=== PATIENT | female | born 1945 | race Caucasian/White ===

== ENCOUNTER 2016-06-04 17:28 | Inpatient (IN) | payer OTHER ==
[~2016-06-04] VITALS: Ht 167.6 cm; Wt 59.5 kg
[~2016-06-04 17:28] MED LIST: ADVAIR HFA120 INHALA IH; COUMADIN5 MG PO; GLIPIZIDE ER2.5 MG PO; HYDROCHLOROTH12.5 M3 PO; LEVO-T150 MCG PO; LEVO-T75 MCG PO; LEVOTHYROXINE150 MCG PO; LEVOTHYROXINE175 MCG PO; LISINOPRIL10 MG PO; LO-DOSE ASPIRIN81 M1 PO; MEDROL DOSEPAK4 MG PO; METFORMIN HCL500 MG PO; METOPROLOL TART50 MG PO; MUCINEX600 MG PO; PRAVACHOL80 MG PO; PREDNISONE10 MG PO; PROAIR HFA8.5 GM IH; PROMETHAZINE-D120 ML PO; TRIAMCINOLONE A15 GM TP; ZOCOR40 MG PO
[2016-06-04 20:09] LABS: CHLORIDE 100 mEq/L (99-109); POTASSIUM 3.2 mEq/L (3.7-5.4); SODIUM 134 mEq/L (136-147)
[2016-06-04 20:11] LABS: GLUCOSE 120 mg/dL (70-99)
[2016-06-04 20:12] LABS: ANION GAP 8 MEQ/L (2-14)
[2016-06-04 20:13] LABS: PTT 44.2 (25-32); TOTAL BILIRUBIN 0.3 mg/dL (0.0-1.0)
[2016-06-04 20:15] LABS: ALKALINE PHOSPHATASE 56 IU/L (3-129); GFR ESTIMATE (CALCULATED) > 59 mL/min/; HEMATOCRIT 17.4 % (36.0-46.0); MCH 31.1 PG (29.0-34.0); MCHC 32.8 G/DL (30.0-36.0); MCV 95.1 FL (83-99); MEAN PLAT.VOLUME 10.4 uM^3 (9.5-12.4); PLATELET COUNT 303 K/uL (156-360); RBC DIS.WIDTH-CV 12.5 % (11.8-14.6); RBC DIS.WIDTH-SD 38.9 % (39-53); RED BLOOD COUNT 1.83 M/uL (3.80-5.20); WHITE BLOOD COUNT 10.9 K/uL (4.1-10.2)
[2016-06-04 20:16] LABS: UREA NITROGEN (BUN) 21 mg/dL (9-23)
[2016-06-04 20:18] LABS: LIPASE 4 U/L (1.0-51.0)
[2016-06-04 20:31] LABS: INTER. NORMALIZED RATIO 3.3; PROTHROMBIN TIME 35.2 (9.2-11.2)
[2016-06-04] MEDS ORDERED: GLIPIZIDE ER2.5 MG PO (21:24)
[2016-06-04] MEDS ORDERED: WARFARIN SODIUM5 MG PO (21:24)
[2016-06-04] MEDS ORDERED: LEVO-T175 MCG PO (21:25)
[2016-06-04] MEDS ORDERED: HYDROCHLOROTH12.5 M3 PO (21:26)
[2016-06-04 22:01] VITALS: BP 100/50
[2016-06-04 22:24] VITALS: BP 90/47
[2016-06-04 22:42] VITALS: BP 113/50
[2016-06-04 23:30] VITALS: BP 100/60
[2016-06-04 23:45] LABS: TROP-I INTERPRETATION NEGATIVE; TROPONIN-I < 0.01 ng/mL (0.0-0.30)
[2016-06-05] VITALS (27 sets, daily range): BP systolic 85–128; BP diastolic 37–66
[2016-06-05 04:37] LABS: METH RESISTANT S AUREUS PCR NEGATIVE (NEGATIVE)
[2016-06-05 04:41] LABS: EOSINOPHIL (%) 1.1 % (0-5); EOSINOPHIL COUNT 0.1 K/uL (0-0.3); HEMATOCRIT 21.9 % (36.0-46.0); IMMATURE GRANULOCYTE (%) 0.1 % (0.0-0.7); IMMATURE GRANULOCYTE COUNT 0.1 K/uL; LYMPHOCYTE COUNT 2.1 K/uL (1.0-2.8); MCH 30.3 PG (29.0-34.0); MCHC 32.9 G/DL (30.0-36.0); MEAN PLAT.VOLUME 10.2 uM^3 (9.5-12.4); MONOCYTE (%) 7.5 % (3-12); MONOCYTE COUNT 0.6 K/uL (0-0.8); NEUTROPHIL (%) 65.4 % (45-76); NEUTROPHIL COUNT 5.3 K/uL (1.8-6.4); PLATELET COUNT 231 K/uL (156-360); RBC DIS.WIDTH-CV 13.9 % (11.8-14.6); RED BLOOD COUNT 2.38 M/uL (3.80-5.20)
[2016-06-05 04:42] LABS: PROBE CHECK PASS; SPECIMEN PROCESSING CONTROL PASS
[2016-06-05 04:43] LABS: CHLORIDE 109 mEq/L (99-109); POTASSIUM 3.3 mEq/L (3.7-5.4); SODIUM 137 mEq/L (136-147)
[2016-06-05 04:45] LABS: GLUCOSE 125 mg/dL (70-99)
[2016-06-05 04:47] LABS: ANION GAP 7 MEQ/L (2-14)
[2016-06-05 04:48] LABS: INTER. NORMALIZED RATIO 1.5; PROTHROMBIN TIME 15.1 (9.2-11.2)
[2016-06-05 04:49] LABS: GFR ESTIMATE (CALCULATED) > 59 mL/min/
[2016-06-05 04:50] LABS: UREA NITROGEN (BUN) 17 mg/dL (9-23)
[2016-06-05 06:09] LABS: ALKALINE PHOSPHATASE 58 IU/L (3-129)
[2016-06-05 06:16] LABS: TROP-I INTERPRETATION POSITIVE
[2016-06-05 06:23] LABS: TOTAL BILIRUBIN 1.1 mg/dL (0.0-1.0)
[2016-06-05 06:24] LABS: TROPONIN-I 1.99 ng/mL (0.0-0.30)
[2016-06-05 12:40] LABS: POINT-OF-CARE METER ID UU13113803
[2016-06-05 13:37] LABS: HEMATOCRIT 30.1 % (36.0-46.0); MCH 30.8 PG (29.0-34.0); MCHC 33.6 G/DL (30.0-36.0); MCV 91.8 FL (83-99); MEAN PLAT.VOLUME 10.3 uM^3 (9.5-12.4); PLATELET COUNT 217 K/uL (156-360); RBC DIS.WIDTH-CV 14.7 % (11.8-14.6); RBC DIS.WIDTH-SD 47.4 % (39-53); RED BLOOD COUNT 3.28 M/uL (3.80-5.20); WHITE BLOOD COUNT 7.9 K/uL (4.1-10.2)
[2016-06-05 13:46] LABS: TROP-I INTERPRETATION POSITIVE
[2016-06-05 13:51] LABS: TROPONIN-I 1.84 ng/mL (0.0-0.30)
[2016-06-05 18:17] LABS: POINT-OF-CARE METER ID UU13113803
[2016-06-05 19:01] LABS: HEMATOCRIT 27.2 % (36.0-46.0); MCH 31.4 PG (29.0-34.0); MCHC 34.6 G/DL (30.0-36.0); MEAN PLAT.VOLUME 10.8 uM^3 (9.5-12.4); PLATELET COUNT 241 K/uL (156-360); RBC DIS.WIDTH-CV 14.8 % (11.8-14.6); RBC DIS.WIDTH-SD 47.6 % (39-53); RED BLOOD COUNT 2.99 M/uL (3.80-5.20); WHITE BLOOD COUNT 8.5 K/uL (4.1-10.2)
[2016-06-05 19:30] LABS: TROP-I INTERPRETATION POSITIVE
[2016-06-05 20:12] LABS: TROPONIN-I 1.93 ng/mL (0.0-0.30)
[2016-06-06] VITALS (20 sets, daily range): BP systolic 95–161; BP diastolic 42–63
[2016-06-06 00:27] LABS: POINT-OF-CARE METER ID UU13113803; POINT-OF-CARE USER ID PHATLC
[2016-06-06 02:59] LABS: HEMATOCRIT 31.2 % (36.0-46.0); MCH 30.1 PG (29.0-34.0); MCHC 33.3 G/DL (30.0-36.0); MCV 90.4 FL (83-99); MEAN PLAT.VOLUME 10.2 uM^3 (9.5-12.4); PLATELET COUNT 228 K/uL (156-360); RBC DIS.WIDTH-CV 14.9 % (11.8-14.6); RBC DIS.WIDTH-SD 46.1 % (39-53); RED BLOOD COUNT 3.45 M/uL (3.80-5.20); WHITE BLOOD COUNT 9.6 K/uL (4.1-10.2)
[2016-06-06 05:19] LABS: HEMATOCRIT 32.2 % (36.0-46.0); MCH 30.2 PG (29.0-34.0); MCHC 33.2 G/DL (30.0-36.0); MEAN PLAT.VOLUME 10.5 uM^3 (9.5-12.4); PLATELET COUNT 239 K/uL (156-360); RBC DIS.WIDTH-CV 15.1 % (11.8-14.6); RED BLOOD COUNT 3.54 M/uL (3.80-5.20); WHITE BLOOD COUNT 9.7 K/uL (4.1-10.2)
[2016-06-06 05:28] LABS: PROTHROMBIN TIME 10.4 (9.2-11.2)
[2016-06-06 05:41] LABS: TROP-I INTERPRETATION POSITIVE
[2016-06-06 05:44] LABS: ANION GAP 10 MEQ/L (2-14); CHLORIDE 107 MEQ/L (99-109); GFR ESTIMATE (CALCULATED) > 59 mL/min/; GLUCOSE 108 mg/dL (70-99); MAGNESIUM 1.9 mg/dl (1.3-2.7); POTASSIUM 3.6 MEQ/L (3.7-5.4); SAMPLE HEMOLYSIS CHECK 0; SAMPLE ICTERIC CHECK 0; SAMPLE LIPEMIA CHECK 0; SODIUM 139 MEQ/L (136-147); UREA NITROGEN (BUN) 15 mg/dL (9-23)
[2016-06-06 12:33] LABS: HEMATOCRIT 30.6 % (36.0-46.0); MCH 30.4 PG (29.0-34.0); MCHC 33.3 G/DL (30.0-36.0); MCV 91.3 FL (83-99); MEAN PLAT.VOLUME 10.3 uM^3 (9.5-12.4); PLATELET COUNT 230 K/uL (156-360); RBC DIS.WIDTH-CV 15.2 % (11.8-14.6); RBC DIS.WIDTH-SD 48.9 % (39-53); RED BLOOD COUNT 3.35 M/uL (3.80-5.20)
[2016-06-06 18:14] LABS: POINT-OF-CARE METER ID UU14162636
[2016-06-06 18:22] LABS: HEMATOCRIT 32.1 % (36.0-46.0); MCH 30.9 PG (29.0-34.0); MCHC 33.6 G/DL (30.0-36.0); MEAN PLAT.VOLUME 10.5 uM^3 (9.5-12.4); PLATELET COUNT 238 K/uL (156-360); RBC DIS.WIDTH-CV 15.3 % (11.8-14.6); RBC DIS.WIDTH-SD 49.5 % (39-53); RED BLOOD COUNT 3.49 M/uL (3.80-5.20); WHITE BLOOD COUNT 10.9 K/uL (4.1-10.2)
[2016-06-07] VITALS (24 sets, daily range): BP systolic 77–136; BP diastolic 34–67
[2016-06-07 00:09] LABS: POINT-OF-CARE METER ID UU14162636
[2016-06-07 00:33] LABS: HEMATOCRIT 31.8 % (36.0-46.0); MCH 30.7 PG (29.0-34.0); MCHC 33.6 G/DL (30.0-36.0); MCV 91.1 FL (83-99); MEAN PLAT.VOLUME 10.1 uM^3 (9.5-12.4); PLATELET COUNT 262 K/uL (156-360); RBC DIS.WIDTH-CV 15.3 % (11.8-14.6); RBC DIS.WIDTH-SD 47.7 % (39-53); RED BLOOD COUNT 3.49 M/uL (3.80-5.20); WHITE BLOOD COUNT 11.2 K/uL (4.1-10.2)
[2016-06-07 06:05] LABS: HEMATOCRIT 30.7 % (36.0-46.0); MCH 30.1 PG (29.0-34.0); MCHC 32.9 G/DL (30.0-36.0); MCV 91.6 FL (83-99); MEAN PLAT.VOLUME 10.4 uM^3 (9.5-12.4); PLATELET COUNT 266 K/uL (156-360); RBC DIS.WIDTH-CV 15.2 % (11.8-14.6); RBC DIS.WIDTH-SD 48.9 % (39-53); RED BLOOD COUNT 3.35 M/uL (3.80-5.20); WHITE BLOOD COUNT 11.2 K/uL (4.1-10.2)
[2016-06-07 06:07] LABS: POINT-OF-CARE METER ID UU13113803
[2016-06-07 06:16] LABS: INTER. NORMALIZED RATIO 1.1; PROTHROMBIN TIME 10.7 (9.2-11.2)
[2016-06-07 06:41] LABS: ANION GAP 9 MEQ/L (2-14); CHLORIDE 101 MEQ/L (99-109); GFR ESTIMATE (CALCULATED) > 59 mL/min/; GLUCOSE 99 mg/dL (70-99); MAGNESIUM 1.9 mg/dl (1.3-2.7); POTASSIUM 3.6 MEQ/L (3.7-5.4); SAMPLE HEMOLYSIS CHECK 0; SAMPLE ICTERIC CHECK 0; SAMPLE LIPEMIA CHECK 0; SODIUM 134 MEQ/L (136-147); UREA NITROGEN (BUN) 12 mg/dL (9-23)
[2016-06-07 12:24] LABS: HEMATOCRIT 32.4 % (36.0-46.0); MCH 30.9 PG (29.0-34.0); MCHC 33.3 G/DL (30.0-36.0); MCV 92.8 FL (83-99); MEAN PLAT.VOLUME 10.7 uM^3 (9.5-12.4); PLATELET COUNT 262 K/uL (156-360); RBC DIS.WIDTH-CV 15.3 % (11.8-14.6); RBC DIS.WIDTH-SD 49.9 % (39-53); RED BLOOD COUNT 3.49 M/uL (3.80-5.20); WHITE BLOOD COUNT 9.9 K/uL (4.1-10.2)
[2016-06-07 17:53] LABS: HEMATOCRIT 32.3 % (36.0-46.0); MCH 30.7 PG (29.0-34.0); MCHC 33.4 G/DL (30.0-36.0); MCV 91.8 FL (83-99); PLATELET COUNT 266 K/uL (156-360); RBC DIS.WIDTH-CV 15.2 % (11.8-14.6); RBC DIS.WIDTH-SD 48.5 % (39-53); RED BLOOD COUNT 3.52 M/uL (3.80-5.20); WHITE BLOOD COUNT 10.3 K/uL (4.1-10.2)
[2016-06-07 23:51] LABS: MCV 90.9 FL (83-99)
[2016-06-08] VITALS (21 sets, daily range): BP systolic 92–140; BP diastolic 47–77
[2016-06-08 05:49] LABS: HEMATOCRIT 31.3 % (36.0-46.0); MCH 30.2 PG (29.0-34.0); MCHC 32.9 G/DL (30.0-36.0); MCV 91.8 FL (83-99); MEAN PLAT.VOLUME 10.5 uM^3 (9.5-12.4); PLATELET COUNT 283 K/uL (156-360); RBC DIS.WIDTH-CV 14.9 % (11.8-14.6); RBC DIS.WIDTH-SD 48.3 % (39-53); RED BLOOD COUNT 3.41 M/uL (3.80-5.20); WHITE BLOOD COUNT 11.3 K/uL (4.1-10.2)
[2016-06-08 06:10] LABS: INTER. NORMALIZED RATIO 1.2; PROTHROMBIN TIME 11.8 (9.2-11.2)
[2016-06-08 06:59] LABS: ANION GAP 6 MEQ/L (2-14); CHLORIDE 102 MEQ/L (99-109); GFR ESTIMATE (CALCULATED) > 59 mL/min/; GLUCOSE 102 mg/dL (70-99); POTASSIUM 3.7 MEQ/L (3.7-5.4); SAMPLE HEMOLYSIS CHECK 0; SAMPLE ICTERIC CHECK 0; SAMPLE LIPEMIA CHECK 0; SODIUM 135 MEQ/L (136-147); UREA NITROGEN (BUN) 7 mg/dL (9-23)
[2016-06-08 07:01] LABS: MAGNESIUM 1.6 mg/dl (1.3-2.7)
[2016-06-08 09:09] LABS: POINT-OF-CARE METER ID UU14174217
[2016-06-08 10:02] LABS: POINT-OF-CARE METER ID UU14162636
[2016-06-08 12:41] LABS: HEMATOCRIT 32.1 % (36.0-46.0); MCHC 32.7 G/DL (30.0-36.0); MCV 91.7 FL (83-99); MEAN PLAT.VOLUME 10.3 uM^3 (9.5-12.4); PLATELET COUNT 285 K/uL (156-360); RBC DIS.WIDTH-CV 15.2 % (11.8-14.6); RBC DIS.WIDTH-SD 48.4 % (39-53)
[2016-06-08 12:43] LABS: POINT-OF-CARE METER ID UU14174217
[2016-06-08 16:52] LABS: HEMATOCRIT 32.3 % (36.0-46.0); MCH 30.1 PG (29.0-34.0); MCHC 33.1 G/DL (30.0-36.0); MEAN PLAT.VOLUME 10.1 uM^3 (9.5-12.4); PLATELET COUNT 281 K/uL (156-360); RBC DIS.WIDTH-CV 14.8 % (11.8-14.6); RBC DIS.WIDTH-SD 47.9 % (39-53); RED BLOOD COUNT 3.55 M/uL (3.80-5.20); WHITE BLOOD COUNT 10.3 K/uL (4.1-10.2)
[2016-06-08 17:13] LABS: ANION GAP 7 MEQ/L (2-14); CHLORIDE 101 MEQ/L (99-109); GFR ESTIMATE (CALCULATED) > 59 mL/min/; GLUCOSE 102 mg/dL (70-99); MAGNESIUM 1.6 mg/dl (1.3-2.7); POTASSIUM 3.6 MEQ/L (3.7-5.4); SAMPLE HEMOLYSIS CHECK 0; SAMPLE ICTERIC CHECK 0; SAMPLE LIPEMIA CHECK 0; SODIUM 136 MEQ/L (136-147); UREA NITROGEN (BUN) 6 mg/dL (9-23)
[2016-06-08 17:52] LABS: POINT-OF-CARE METER ID UU13113731
[2016-06-08 22:07] LABS: POINT-OF-CARE METER ID UU13113731
[2016-06-09] VITALS (18 sets, daily range): BP systolic 67–126; BP diastolic 30–64
[2016-06-09 00:29] LABS: HEMATOCRIT 31.7 % (36.0-46.0); MCH 30.5 PG (29.0-34.0); MCHC 33.4 G/DL (30.0-36.0); MCV 91.4 FL (83-99); MEAN PLAT.VOLUME 9.9 uM^3 (9.5-12.4); PLATELET COUNT 300 K/uL (156-360); RBC DIS.WIDTH-SD 47.1 % (39-53); RED BLOOD COUNT 3.47 M/uL (3.80-5.20); WHITE BLOOD COUNT 11.3 K/uL (4.1-10.2)
[2016-06-09 06:06] LABS: ANION GAP 8 MEQ/L (2-14); CHLORIDE 100 MEQ/L (99-109); GFR ESTIMATE (CALCULATED) > 59 mL/min/; GLUCOSE 109 mg/dL (70-99); MAGNESIUM 1.6 mg/dl (1.3-2.7); POTASSIUM 3.8 MEQ/L (3.7-5.4); SAMPLE HEMOLYSIS CHECK 0; SAMPLE ICTERIC CHECK 0; SAMPLE LIPEMIA CHECK 0; SODIUM 136 MEQ/L (136-147); UREA NITROGEN (BUN) 5 mg/dL (9-23)
[2016-06-09 11:57] LABS: POINT-OF-CARE METER ID UU13113803
[2016-06-09 21:50] LABS: POINT-OF-CARE METER ID UU13113803
[2016-06-10] VITALS (16 sets, daily range): BP systolic 53–133; BP diastolic 41–67
[2016-06-10 05:16] LABS: POTASSIUM 3.4 mEq/L (3.7-5.4); SODIUM 137 mEq/L (136-147)
[2016-06-10 05:17] LABS: CHLORIDE 98 mEq/L (99-109)
[2016-06-10 05:18] LABS: GLUCOSE 120 mg/dL (70-99); MAGNESIUM 1.5 mg/dL (1.3-2.7)
[2016-06-10 05:19] LABS: ANION GAP 9 MEQ/L (2-14)
[2016-06-10 05:22] LABS: GFR ESTIMATE (CALCULATED) > 59 mL/min/
[2016-06-10 05:23] LABS: UREA NITROGEN (BUN) 4 mg/dL (9-23)
[2016-06-10 08:30] LABS: POINT-OF-CARE METER ID UU13113748; POINT-OF-CARE USER ID NUTJLF39
[2016-06-10 12:20] LABS: POINT-OF-CARE METER ID UU13113748; POINT-OF-CARE USER ID NUTJLF39
[2016-06-10 13:21] LABS: TROP-I INTERPRETATION NEGATIVE; TROPONIN-I 0.05 ng/mL (0.0-0.30)
[2016-06-10 13:25] LABS: ANION GAP 5 MEQ/L (2-14); CHLORIDE 98 MEQ/L (99-109); GFR ESTIMATE (CALCULATED) > 59 mL/min/; GLUCOSE 206 mg/dL (70-99); MAGNESIUM 1.5 mg/dl (1.3-2.7); SAMPLE HEMOLYSIS CHECK 0; SAMPLE ICTERIC CHECK 0; SAMPLE LIPEMIA CHECK 0; SODIUM 132 MEQ/L (136-147); UREA NITROGEN (BUN) 4 mg/dL (9-23)
[2016-06-10 13:26] LABS: POTASSIUM 4.4 MEQ/L (3.7-5.4)
[2016-06-10 15:33] LABS: POINT-OF-CARE METER ID UU13113748; POINT-OF-CARE USER ID NUTJLF39
[2016-06-10 22:52] LABS: POINT-OF-CARE METER ID UU13113748
[2016-06-11] VITALS (11 sets, daily range): BP systolic 100–134; BP diastolic 45–61
[2016-06-11 06:26] LABS: POINT-OF-CARE METER ID UU13113748
[2016-06-11 06:28] LABS: EOSINOPHIL (%) 2.1 % (0-5); EOSINOPHIL COUNT 0.2 K/uL (0-0.3); HEMATOCRIT 35.2 % (36.0-46.0); IMMATURE GRANULOCYTE (%) 0.1 % (0.0-0.7); LYMPHOCYTE COUNT 1.5 K/uL (1.0-2.8); MCH 30.3 PG (29.0-34.0); MCHC 32.7 G/DL (30.0-36.0); MCV 92.9 FL (83-99); MEAN PLAT.VOLUME 10.5 uM^3 (9.5-12.4); MONOCYTE (%) 11.3 % (3-12); MONOCYTE COUNT 0.9 K/uL (0-0.8); NEUTROPHIL (%) 66.9 % (45-76); NEUTROPHIL COUNT 5.2 K/uL (1.8-6.4); PLATELET COUNT 343 K/uL (156-360); RBC DIS.WIDTH-CV 14.7 % (11.8-14.6); RBC DIS.WIDTH-SD 49.1 % (39-53); RED BLOOD COUNT 3.79 M/uL (3.80-5.20)
[2016-06-11 06:34] LABS: WHITE BLOOD COUNT 7.7 K/uL (4.1-10.2)
[2016-06-11 06:44] LABS: ANION GAP 7 MEQ/L (2-14); CHLORIDE 98 MEQ/L (99-109); GFR ESTIMATE (CALCULATED) > 59 mL/min/; GLUCOSE 131 mg/dL (70-99); MAGNESIUM 1.7 mg/dl (1.3-2.7); POTASSIUM 4.3 MEQ/L (3.7-5.4); SAMPLE HEMOLYSIS CHECK 0; SAMPLE ICTERIC CHECK 0; SAMPLE LIPEMIA CHECK 0; SODIUM 137 MEQ/L (136-147); UREA NITROGEN (BUN) 4 mg/dL (9-23)
[2016-06-11 07:18] LABS: DIGOXIN 0.5 ng/mL (0.8-2.0)
[2016-06-12] VITALS (7 sets, daily range): BP systolic 126–156; BP diastolic 58–76
[2016-06-12 06:13] LABS: EOSINOPHIL (%) 1.8 % (0-5); EOSINOPHIL COUNT 0.2 K/uL (0-0.3); IMMATURE GRANULOCYTE (%) 0.2 % (0.0-0.7); LYMPHOCYTE COUNT 1.7 K/uL (1.0-2.8); MCH 29.9 PG (29.0-34.0); MCHC 32.8 G/DL (30.0-36.0); MCV 91.4 FL (83-99); MONOCYTE (%) 8.3 % (3-12); MONOCYTE COUNT 0.8 K/uL (0-0.8); NEUTROPHIL (%) 71.4 % (45-76); NEUTROPHIL COUNT 6.7 K/uL (1.8-6.4); PLATELET COUNT 398 K/uL (156-360); RBC DIS.WIDTH-CV 14.7 % (11.8-14.6); RBC DIS.WIDTH-SD 48.3 % (39-53); RED BLOOD COUNT 3.94 M/uL (3.80-5.20); WHITE BLOOD COUNT 9.4 K/uL (4.1-10.2)
[2016-06-12 06:47] LABS: ANION GAP 7 MEQ/L (2-14); CHLORIDE 96 MEQ/L (99-109); GFR ESTIMATE (CALCULATED) > 59 mL/min/; GLUCOSE 128 mg/dL (70-99); MAGNESIUM 1.6 mg/dl (1.3-2.7); POTASSIUM 4.3 MEQ/L (3.7-5.4); SAMPLE HEMOLYSIS CHECK 0; SAMPLE ICTERIC CHECK 0; SAMPLE LIPEMIA CHECK 0; SODIUM 135 MEQ/L (136-147); UREA NITROGEN (BUN) 3 mg/dL (9-23)
[2016-06-12 12:01] LABS: POINT-OF-CARE METER ID UU14174216
[2016-06-12 16:51] LABS: POINT-OF-CARE METER ID UU13113698
[2016-06-12 20:46] LABS: POINT-OF-CARE METER ID UU14174216
[2016-06-13 04:24] VITALS: BP 138/62
[2016-06-13 05:34] LABS: EOSINOPHIL (%) 1.8 % (0-5); EOSINOPHIL COUNT 0.2 K/uL (0-0.3); HEMATOCRIT 34.7 % (36.0-46.0); IMMATURE GRANULOCYTE (%) 0.2 % (0.0-0.7); LYMPHOCYTE COUNT 1.7 K/uL (1.0-2.8); MCH 30.1 PG (29.0-34.0); MCHC 32.9 G/DL (30.0-36.0); MCV 91.6 FL (83-99); MONOCYTE (%) 7.8 % (3-12); MONOCYTE COUNT 0.7 K/uL (0-0.8); NEUTROPHIL (%) 71.7 % (45-76); NEUTROPHIL COUNT 6.8 K/uL (1.8-6.4); PLATELET COUNT 367 K/uL (156-360); RBC DIS.WIDTH-CV 14.7 % (11.8-14.6); RBC DIS.WIDTH-SD 48.3 % (39-53); RED BLOOD COUNT 3.79 M/uL (3.80-5.20); WHITE BLOOD COUNT 9.4 K/uL (4.1-10.2)
[2016-06-13 06:01] LABS: ANION GAP 7 MEQ/L (2-14); CHLORIDE 96 MEQ/L (99-109); GFR ESTIMATE (CALCULATED) > 59 mL/min/; GLUCOSE 127 mg/dL (70-99); POTASSIUM 3.7 MEQ/L (3.7-5.4); SAMPLE HEMOLYSIS CHECK 0; SAMPLE ICTERIC CHECK 0; SAMPLE LIPEMIA CHECK 0; SODIUM 136 MEQ/L (136-147); UREA NITROGEN (BUN) 3 mg/dL (9-23)
[2016-06-13 08:38] VITALS: BP 167/78
[2016-06-13 11:52] LABS: POINT-OF-CARE METER ID UU13113698
[2016-06-13 12:37] VITALS: BP 130/58
[2016-06-13 17:03] VITALS: BP 154/68
[2016-06-13 19:30] VITALS: BP 109/56
[2016-06-13 23:28] VITALS: BP 135/64
[2016-06-14 04:38] VITALS: BP 132/68
[2016-06-14 06:54] LABS: EOSINOPHIL (%) 2.7 % (0-5); EOSINOPHIL COUNT 0.3 K/uL (0-0.3); HEMATOCRIT 35.5 % (36.0-46.0); IMMATURE GRANULOCYTE (%) 0.2 % (0.0-0.7); LYMPHOCYTE COUNT 1.7 K/uL (1.0-2.8); MCH 29.9 PG (29.0-34.0); MCHC 32.7 G/DL (30.0-36.0); MCV 91.5 FL (83-99); MEAN PLAT.VOLUME 10.3 uM^3 (9.5-12.4); MONOCYTE (%) 7.4 % (3-12); MONOCYTE COUNT 0.7 K/uL (0-0.8); NEUTROPHIL (%) 71.7 % (45-76); PLATELET COUNT 427 K/uL (156-360); RBC DIS.WIDTH-CV 14.8 % (11.8-14.6); RBC DIS.WIDTH-SD 48.7 % (39-53); RED BLOOD COUNT 3.88 M/uL (3.80-5.20); WHITE BLOOD COUNT 9.8 K/uL (4.1-10.2)
[2016-06-14 07:26] LABS: ANION GAP 11 MEQ/L (2-14); CHLORIDE 95 MEQ/L (99-109); GFR ESTIMATE (CALCULATED) > 59 mL/min/; GLUCOSE 134 mg/dL (70-99); MAGNESIUM 1.7 mg/dl (1.3-2.7); POTASSIUM 3.9 MEQ/L (3.7-5.4); SAMPLE HEMOLYSIS CHECK 0; SAMPLE ICTERIC CHECK 0; SAMPLE LIPEMIA CHECK 0; SODIUM 136 MEQ/L (136-147); UREA NITROGEN (BUN) 4 mg/dL (9-23)
[2016-06-14 08:00] VITALS: BP 125/60
[2016-06-14 08:12] LABS: POINT-OF-CARE METER ID UU13113698
[2016-06-14 11:45] VITALS: BP 126/58
[2016-06-14 12:57] VITALS: BP 119/60
[2016-06-14 13:09] LABS: POINT-OF-CARE METER ID UU13113698
[2016-06-14 15:15] VITALS: BP 121/59
[2016-06-14 15:24] LABS: DIGOXIN 0.6 ng/mL (0.8-2.0)
[2016-06-14 16:27] LABS: POINT-OF-CARE METER ID UU13113781
[2016-06-14 21:08] LABS: POINT-OF-CARE METER ID UU13113725
[2016-06-14 23:24] VITALS: BP 151/78
[2016-06-15 00:20] LABS: POINT-OF-CARE METER ID UU13113717
[2016-06-15 05:57] LABS: POINT-OF-CARE METER ID UU13113725
[2016-06-15 06:20] LABS: MCH 29.9 PG (29.0-34.0); MCV 90.7 FL (83-99); PLATELET COUNT 499 K/uL (156-360); RBC DIS.WIDTH-CV 14.7 % (11.8-14.6); RBC DIS.WIDTH-SD 47.6 % (39-53); RED BLOOD COUNT 4.08 M/uL (3.80-5.20)
[2016-06-15 06:52] LABS: ANION GAP 9 MEQ/L (2-14); CHLORIDE 94 MEQ/L (99-109); GFR ESTIMATE (CALCULATED) > 59 mL/min/; GLUCOSE 123 mg/dL (70-99); POTASSIUM 3.8 MEQ/L (3.7-5.4); SAMPLE HEMOLYSIS CHECK 0; SAMPLE ICTERIC CHECK 0; SAMPLE LIPEMIA CHECK 0; SODIUM 135 MEQ/L (136-147); UREA NITROGEN (BUN) 5 mg/dL (9-23)
[2016-06-15 07:18] VITALS: BP 140/62
[2016-06-15] MEDS ORDERED: FUROSEMIDE40 MG PO (11:17)
[2016-06-15] MEDS ORDERED: K-DUR20 MEQ PO (11:17)
[2016-06-15] MEDS ORDERED: ELIQUIS5 MG PO (11:17)
[2016-06-15] MEDS ORDERED: ADVAIR HFA120 INHALA IH (11:21)
[2016-06-15] MEDS ORDERED: PROTONIX40 MG PO (11:21)
[2016-06-15] MEDS ORDERED: DIGOXIN125 MCG PO (11:22)
[2016-06-15] MEDS ORDERED: DUONEB 2.5-0.5 M3 ML AEROSOL (11:22)
[2016-06-15] MEDS ORDERED: CORDARONE200 MG PO (11:22)
[2016-06-15 11:43] LABS: POINT-OF-CARE METER ID UU13113717
[2016-06-15] MEDS ORDERED: BREO ELLIPTA I1 EACH IH (14:36)
== END 2016-06-15 16:10 | disposition home or self-care (01) | DRG 377 ==
LOC: EME 17:28 → 4EAST 21:17 → EDOF 21:17 → 4WEST 21:17 → EDOF 23:38 → 4WEST 06-05 03:01 → 4EAST 06-11 23:04 → 5EAST 06-14 18:17
PROVIDERS: Emergency Medicine; Hospitalist; Internal Medicine; Internal Medicine Cardiovascular Disease; Nurse Practitioner Family; Physician Assistant Medical
PROC: 30233N1 Transfusion of Nonautologous Red Blood Cells into Peripheral Vein, Percutaneous Approach (ICD-10-PCS; principal; 2016-06-04)
PROC: 0DJ08ZZ Inspection of Upper Intestinal Tract, Via Natural or Artificial Opening Endoscopic (ICD-10-PCS; 2016-06-07)
DX: K92.2 Gastrointestinal hemorrhage, unspecified (principal); R57.8 Other shock; J96.01 Acute respiratory failure with hypoxia; I26.99 Other pulmonary embolism without acute cor pulmonale; J18.9 Pneumonia, unspecified organism; J90 Pleural effusion, not elsewhere classified; D62 Acute posthemorrhagic anemia; D68.9 Coagulation defect, unspecified; I48.0 Paroxysmal atrial fibrillation; I10 Essential (primary) hypertension; K57.92 Diverticulitis of intestine, part unspecified, without perforation or abscess without bleeding; E87.6 Hypokalemia; I25.10 Atherosclerotic heart disease of native coronary artery without angina pectoris; E03.9 Hypothyroidism, unspecified; Z86.711 Personal history of pulmonary embolism; E11.9 Type 2 diabetes mellitus without complications; Z95.1 Presence of aortocoronary bypass graft; Z90.49 Acquired absence of other specified parts of digestive tract; F17.210 Nicotine dependence, cigarettes, uncomplicated; J44.9 Chronic obstructive pulmonary disease, unspecified; I65.23 Occlusion and stenosis of bilateral carotid arteries; K29.80 Duodenitis without bleeding; K25.9 Gastric ulcer, unspecified as acute or chronic, without hemorrhage or perforation; I71.4 Abdominal aortic aneurysm, without rupture; J98.4 Other disorders of lung
CPT/HCPCS: 36415; 70498; 71010; 71020; 71250; 71275; 74177; 80048; 80048 91; 80053; 80162; 81003; 82948; 83605; 83690; 83735; 83880; 84100; 84484; 85014; 85018; 85025; 85027; 85610; 85730; 86850; 86900; 86901; 86920; 87040; 87070; 87205; 87641; 93005; 93306; 93880; 93970; 94640; 94640 76; 94760; 94799; 99202; 99281; 99285; C9113; J0153; J0282; J0744; J1815; J1940; J2704; J3430; J3475; J3480; J7030; J7040; J7050; P9016; P9017; S0030

== ENCOUNTER 2016-12-07 23:41 | Emergency (ER) | payer OTHER ==
[~2016-12-07] VITALS: Ht 167.6 cm; Wt 56.9 kg
[~2016-12-07 23:41] MED LIST changes: +BREO ELLIPTA I1 EACH IH; +CORDARONE200 MG PO; +DIGOXIN125 MCG PO; +DUONEB 2.5-0.5 M3 ML AEROSOL; +ELIQUIS5 MG PO; +FUROSEMIDE40 MG PO; +K-DUR20 MEQ PO; +LEVO-T175 MCG PO; +PROTONIX40 MG PO; +WARFARIN SODIUM5 MG PO
[2016-12-07 23:43] VITALS: BP 176/68
== END 2016-12-08 01:04 | disposition left against medical advice (07) ==
LOC: EME 23:41
DX: R04.0 Epistaxis (principal); Z53.21 Procedure and treatment not carried out due to patient leaving prior to being seen by health care provider

== ENCOUNTER 2017-02-25 13:56 | Inpatient (IN) | payer OTHER ==
[~2017-02-25] VITALS: Ht 165.1 cm; Wt 60.6 kg
[2017-02-25 14:29] LABS: EOSINOPHIL (%) 0.9 % (0-5); EOSINOPHIL COUNT 0.1 K/uL (0-0.3); HEMATOCRIT 15.2 % (36.0-46.0); IMMATURE GRANULOCYTE (%) 0.3 % (0.0-0.7); INSTRUMENT ABS NEUTROPHIL CT 6.4 K/uL; LYMPHOCYTE COUNT 1.8 K/uL (1.0-2.8); MCHC 30.9 G/DL (30.0-36.0); MCV 87.4 FL (83-99); MEAN PLAT.VOLUME 9.8 uM^3 (9.5-12.4); MONOCYTE (%) 6.2 % (3-12); MONOCYTE COUNT 0.6 K/uL (0-0.8); NEUTROPHIL (%) 71.8 % (45-76); NEUTROPHIL COUNT 6.4 K/uL (1.8-6.4); PLATELET COUNT 355 K/uL (156-360); RBC DIS.WIDTH-CV 15.7 % (11.8-14.6); RBC DIS.WIDTH-SD 51.1 % (39-53); RED BLOOD COUNT 1.74 M/uL (3.80-5.20); WHITE BLOOD COUNT 8.9 K/uL (4.1-10.2)
[2017-02-25 14:30] LABS: INTER. NORMALIZED RATIO 1.5; PROTHROMBIN TIME 16.6 SEC (10.2-12.9)
[2017-02-25 14:33] LABS: PTT 32.4 SEC (25-37)
[2017-02-25 14:34] LABS: CHLORIDE 103 mEq/L (99-109); POTASSIUM 3.2 mEq/L (3.7-5.4)
[2017-02-25 14:35] LABS: SODIUM 135 mEq/L (136-147)
[2017-02-25 14:36] LABS: GLUCOSE 138 mg/dL (70-99)
[2017-02-25 14:38] LABS: ANION GAP 11 MEQ/L (2-14)
[2017-02-25 14:40] LABS: GFR ESTIMATE (CALCULATED) > 59 mL/min/
[2017-02-25 14:41] LABS: UREA NITROGEN (BUN) 16 mg/dL (9-23)
[2017-02-25 14:45] LABS: TROP-I INTERPRETATION NEGATIVE; TROPONIN-I 0.04 ng/mL (0.0-0.30)
[2017-02-25] MEDS ORDERED: LEVO-T125 MCG PO (16:28)
[2017-02-25] MEDS ORDERED: LO-DOSE ASPIRIN81 M2 PO (16:30)
[2017-02-25] MEDS ORDERED: LIPITOR20 MG PO (16:31)
[2017-02-25 20:18] LABS: MAGNESIUM 1.9 mg/dL (1.3-2.7)
[2017-02-25 20:21] LABS: TOTAL BILIRUBIN 0.2 mg/dL (0.0-1.0)
[2017-02-25 20:22] LABS: ALKALINE PHOSPHATASE 67 IU/L (3-129)
[2017-02-25 20:25] LABS: DIRECT BILIRUBIN 0.1 mg/dL (0.0-0.3)
[2017-02-25 20:29] VITALS: BP 125/75
[2017-02-25 21:05] VITALS: BP 125/75
[2017-02-25 21:10] LABS: TROP-I INTERPRETATION NEGATIVE; TROPONIN-I 0.06 ng/mL (0.0-0.30)
[2017-02-25 22:33] VITALS: BP 126/56
[2017-02-25 22:50] VITALS: BP 126/58
[2017-02-25 23:40] VITALS: BP 145/56
[2017-02-25 23:49] VITALS: BP 145/56
[2017-02-26] VITALS (14 sets, daily range): BP systolic 105–136; BP diastolic 50–78
[2017-02-26 01:12] LABS: POINT-OF-CARE METER ID UU13113698
[2017-02-26 05:16] LABS: TROP-I INTERPRETATION INDETERMINATE; TROPONIN-I 0.32 ng/mL (0.0-0.30)
[2017-02-26 06:00] LABS: HEMATOCRIT 19.4 % (36.0-46.0); MCH 27.9 PG (29.0-34.0); MCV 87.4 FL (83-99); MEAN PLAT.VOLUME 10.6 uM^3 (9.5-12.4); NRBC (%) 0.2 /100 WBC (0-0); PLATELET COUNT 291 K/uL (156-360); RBC DIS.WIDTH-CV 14.9 % (11.8-14.6); RBC DIS.WIDTH-SD 47.2 % (39-53); WHITE BLOOD COUNT 8.5 K/uL (4.1-10.2)
[2017-02-26 06:06] LABS: RED BLOOD COUNT 2.22 M/uL (3.80-5.20)
[2017-02-26 06:20] LABS: ALKALINE PHOSPHATASE 59 IU/L (3-129); ANION GAP 7 MEQ/L (2-14); CHLORIDE 103 MEQ/L (99-109); GFR ESTIMATE (CALCULATED) 58 mL/min/; GLUCOSE 117 mg/dL (70-99); SAMPLE HEMOLYSIS CHECK 0; SAMPLE ICTERIC CHECK 0; SAMPLE LIPEMIA CHECK 0; SODIUM 138 MEQ/L (136-147); TOTAL BILIRUBIN 0.9 MG/DL (0.0-1.0); UREA NITROGEN (BUN) 15 mg/dL (9-23)
[2017-02-26 06:32] LABS: POTASSIUM 3.9 MEQ/L (3.7-5.4)
[2017-02-26 07:31] LABS: INTERNAL CONTROL VALID? YES
[2017-02-26 07:48] LABS: POINT-OF-CARE METER ID UU14174216
[2017-02-26 12:27] LABS: POINT-OF-CARE METER ID UU13113675
[2017-02-26 15:18] LABS: HEMATOCRIT 25.9 % (36.0-46.0); MCV 86.9 FL (83-99)
[2017-02-26 20:47] LABS: HEMATOCRIT 25.3 % (36.0-46.0); MCV 86.9 FL (83-99)
[2017-02-26 21:41] LABS: POINT-OF-CARE METER ID UU14174216
[2017-02-27 04:30] VITALS: BP 123/56
[2017-02-27 04:45] LABS: HEMATOCRIT 24.2 % (36.0-46.0); MCH 28.6 PG (29.0-34.0); MCHC 33.5 G/DL (30.0-36.0); MCV 85.5 FL (83-99); MEAN PLAT.VOLUME 10.3 uM^3 (9.5-12.4); PLATELET COUNT 292 K/uL (156-360); RBC DIS.WIDTH-CV 14.4 % (11.8-14.6); RBC DIS.WIDTH-SD 44.6 % (39-53); WHITE BLOOD COUNT 7.9 K/uL (4.1-10.2)
[2017-02-27 04:53] LABS: RED BLOOD COUNT 2.83 M/uL (3.80-5.20)
[2017-02-27 04:54] LABS: CHLORIDE 103 mEq/L (99-109); POTASSIUM 3.3 mEq/L (3.7-5.4); SODIUM 138 mEq/L (136-147)
[2017-02-27 04:56] LABS: GLUCOSE 79 mg/dL (70-99)
[2017-02-27 04:57] LABS: ANION GAP 7 MEQ/L (2-14)
[2017-02-27 05:00] LABS: GFR ESTIMATE (CALCULATED) > 59 mL/min/
[2017-02-27 05:01] LABS: UREA NITROGEN (BUN) 12 mg/dL (9-23)
[2017-02-27 07:00] VITALS: BP 115/56
[2017-02-27 11:31] VITALS: BP 146/65
[2017-02-27 15:03] LABS: HEMATOCRIT 26.1 % (36.0-46.0); MCV 88.2 FL (83-99)
[2017-02-27 16:01] LABS: POINT-OF-CARE METER ID UU13113781
[2017-02-27 16:28] VITALS: BP 128/61
[2017-02-27 19:00] VITALS: BP 151/70
[2017-02-27 21:57] LABS: HEMATOCRIT 27.2 % (36.0-46.0); MCV 87.7 FL (83-99)
[2017-02-27 23:26] VITALS: BP 121/59
[2017-02-28 04:36] VITALS: BP 115/56
[2017-02-28 05:37] LABS: HEMATOCRIT 25.8 % (36.0-46.0); MCH 28.8 PG (29.0-34.0); MCHC 32.6 G/DL (30.0-36.0); MCV 88.4 FL (83-99); MEAN PLAT.VOLUME 10.8 uM^3 (9.5-12.4); PLATELET COUNT 327 K/uL (156-360); RBC DIS.WIDTH-CV 14.9 % (11.8-14.6); RBC DIS.WIDTH-SD 48.2 % (39-53); RED BLOOD COUNT 2.92 M/uL (3.80-5.20); WHITE BLOOD COUNT 8.5 K/uL (4.1-10.2)
[2017-02-28 05:39] LABS: PROTHROMBIN TIME 10.9 SEC (10.2-12.9)
[2017-02-28 05:42] LABS: PTT 26.7 SEC (25-37)
[2017-02-28 06:38] LABS: ANION GAP 8 MEQ/L (2-14); CHLORIDE 104 MEQ/L (99-109); GFR ESTIMATE (CALCULATED) > 59 mL/min/; POTASSIUM 3.1 MEQ/L (3.7-5.4); SAMPLE HEMOLYSIS CHECK 0; SAMPLE ICTERIC CHECK 0; SAMPLE LIPEMIA CHECK 0; SODIUM 140 MEQ/L (136-147); UREA NITROGEN (BUN) 7 mg/dL (9-23)
[2017-02-28 06:42] LABS: GLUCOSE 138 mg/dL (70-99)
[2017-02-28 08:09] LABS: POINT-OF-CARE METER ID UU13113781
[2017-02-28 08:10] VITALS: BP 156/67
[2017-02-28 10:27] LABS: POINT-OF-CARE METER ID UU13113698
[2017-02-28 12:15] VITALS: BP 139/65
[2017-02-28 13:58] LABS: HEMATOCRIT 26.9 % (36.0-46.0)
[2017-02-28 16:30] VITALS: BP 152/68
[2017-02-28 19:20] VITALS: BP 113/55
[2017-02-28 21:13] LABS: POINT-OF-CARE METER ID UU14174216
[2017-02-28 22:19] LABS: HEMATOCRIT 24.1 % (36.0-46.0); MCV 89.3 FL (83-99)
[2017-03-01 00:10] VITALS: BP 126/58
[2017-03-01 04:20] VITALS: BP 135/61
[2017-03-01 05:57] LABS: HEMATOCRIT 25.3 % (36.0-46.0); MCH 29.2 PG (29.0-34.0); MCHC 32.4 G/DL (30.0-36.0); MEAN PLAT.VOLUME 10.9 uM^3 (9.5-12.4); NRBC (%) 0.2 /100 WBC (0-0); PLATELET COUNT 314 K/uL (156-360); RBC DIS.WIDTH-CV 15.3 % (11.8-14.6); RBC DIS.WIDTH-SD 49.8 % (39-53); RED BLOOD COUNT 2.81 M/uL (3.80-5.20); WHITE BLOOD COUNT 10.2 K/uL (4.1-10.2)
[2017-03-01 06:35] LABS: ANION GAP 5 MEQ/L (2-14); CHLORIDE 104 MEQ/L (99-109); GFR ESTIMATE (CALCULATED) > 59 mL/min/; GLUCOSE 112 mg/dL (70-99); MAGNESIUM 1.9 mg/dl (1.3-2.7); SAMPLE HEMOLYSIS CHECK 0; SAMPLE ICTERIC CHECK 0; SAMPLE LIPEMIA CHECK 0; SODIUM 138 MEQ/L (136-147); UREA NITROGEN (BUN) 8 mg/dL (9-23)
[2017-03-01 06:41] LABS: POTASSIUM 4.1 MEQ/L (3.7-5.4)
[2017-03-01 07:47] VITALS: BP 124/60
[2017-03-01 07:55] LABS: POINT-OF-CARE METER ID UU13113781
[2017-03-01 11:22] LABS: POINT-OF-CARE METER ID UU13113781
[2017-03-01 11:28] VITALS: BP 144/67
[2017-03-01 15:25] VITALS: BP 135/61
[2017-03-01 16:27] LABS: POINT-OF-CARE METER ID UU13113781
[2017-03-01 19:20] VITALS: BP 144/65
[2017-03-01 21:54] LABS: POINT-OF-CARE METER ID UU13113781
[2017-03-02] VITALS (7 sets, daily range): BP systolic 97–148; BP diastolic 51–66
[2017-03-02 08:03] LABS: POINT-OF-CARE METER ID UU13113781
[2017-03-02 09:39] LABS: HEMATOCRIT 29.1 % (36.0-46.0); MCV 89.3 FL (83-99)
[2017-03-02 10:10] LABS: TROP-I INTERPRETATION NEGATIVE; TROPONIN-I 0.08 ng/mL (0.0-0.30)
[2017-03-02 10:12] LABS: ALKALINE PHOSPHATASE 73 IU/L (3-129); ANION GAP 10 MEQ/L (2-14); CHLORIDE 102 MEQ/L (99-109); GFR ESTIMATE (CALCULATED) > 59 mL/min/; GLUCOSE 112 mg/dL (70-99); POTASSIUM 3.7 MEQ/L (3.7-5.4); SAMPLE HEMOLYSIS CHECK 0; SAMPLE ICTERIC CHECK 0; SAMPLE LIPEMIA CHECK 0; SODIUM 139 MEQ/L (136-147); TOTAL BILIRUBIN 0.7 MG/DL (0.0-1.0); UREA NITROGEN (BUN) 7 mg/dL (9-23)
[2017-03-02 11:27] LABS: POINT-OF-CARE METER ID UU13113781
[2017-03-02 15:09] LABS: TROP-I INTERPRETATION NEGATIVE; TROPONIN-I 0.06 ng/mL (0.0-0.30)
[2017-03-02 15:49] LABS: BICARBONATE 30.6 mEq/L (22-26); METHEMOGLOBIN 1.4 % (0-1.5); PCO2 44 mm Hg (35-45); PO2 49 mm Hg (80-100); pH 7.45 (7.35-7.45)
[2017-03-02 15:50] LABS: COMMENTS - BLOOD GASES A+C+; DEVICE HEATED HFNC; FI02 80 %; O2 FLOW 50 L/MIN; SITE LR
[2017-03-02 16:41] LABS: POINT-OF-CARE METER ID UU13113698
[2017-03-02 21:05] LABS: TROP-I INTERPRETATION NEGATIVE; TROPONIN-I 0.04 ng/mL (0.0-0.30)
[2017-03-02 21:37] LABS: POINT-OF-CARE METER ID UU13113781
[2017-03-03 04:00] VITALS: BP 98/48
[2017-03-03 05:55] LABS: EOSINOPHIL (%) 0 % (0-5); IMMATURE GRANULOCYTE COUNT 0.2 K/uL; INSTRUMENT ABS NEUTROPHIL CT 20.9 K/uL; LYMPHOCYTE COUNT 0.6 K/uL (1.0-2.8); MCH 27.8 PG (29.0-34.0); MCHC 31.8 G/DL (30.0-36.0); MCV 87.5 FL (83-99); MEAN PLAT.VOLUME 10.7 uM^3 (9.5-12.4); MONOCYTE (%) 2.7 % (3-12); MONOCYTE COUNT 0.6 K/uL (0-0.8); NEUTROPHIL (%) 93.7 % (45-76); NEUTROPHIL COUNT 20.9 K/uL (1.8-6.4); PLATELET COUNT 320 K/uL (156-360); RBC DIS.WIDTH-CV 15.1 % (11.8-14.6); RBC DIS.WIDTH-SD 47.9 % (39-53); WHITE BLOOD COUNT 22.4 K/uL (4.1-10.2)
[2017-03-03 06:16] LABS: ANION GAP 11 MEQ/L (2-14); CHLORIDE 98 MEQ/L (99-109); GFR ESTIMATE (CALCULATED) > 59 mL/min/; GLUCOSE 166 mg/dL (70-99); POTASSIUM 3.2 MEQ/L (3.7-5.4); SAMPLE HEMOLYSIS CHECK 0; SAMPLE ICTERIC CHECK 0; SAMPLE LIPEMIA CHECK 0; SODIUM 137 MEQ/L (136-147); UREA NITROGEN (BUN) 12 mg/dL (9-23)
[2017-03-03 07:39] LABS: POINT-OF-CARE METER ID UU13113781
[2017-03-03 08:53] VITALS: BP 125/67
[2017-03-03 11:13] LABS: POINT-OF-CARE METER ID UU13113781
[2017-03-03 11:33] VITALS: BP 98/53
[2017-03-03 15:14] VITALS: BP 118/56
[2017-03-03 15:21] LABS: ADD MIUA? YES; BILIRUBIN NEGATIVE; BLOOD NEGATIVE; COLOR YELLOW ((YELLOW)); GLUCOSE (STRIP) NEGATIVE; KETONES NEGATIVE; LEUKOCYTES TRACE; NITRITE NEGATIVE; PROTEIN (STRIP) NEGATIVE; UROBILINOGEN 0.2 MG/DL (0.2-1.0)
[2017-03-03 15:33] LABS: BACTERIA RARE /HPF; EPITHELIAL CELLS RARE /HPF; MUCUS NONE SEEN /LPF; RED BLOOD CELLS 0-5 /HPF (0-5); UCUL ADDED? NO; WHITE BLOOD CELLS 0-5 /HPF (0-5)
[2017-03-03 16:10] LABS: POINT-OF-CARE METER ID UU13113781
[2017-03-03 19:15] VITALS: BP 126/57
[2017-03-03 23:10] VITALS: BP 106/53
[2017-03-04 04:00] VITALS: BP 105/54
[2017-03-04 04:50] LABS: EOSINOPHIL (%) 0 % (0-5); HEMATOCRIT 25.6 % (36.0-46.0); IMMATURE GRANULOCYTE (%) 1.6 % (0.0-0.7); IMMATURE GRANULOCYTE COUNT 0.4 K/uL; INSTRUMENT ABS NEUTROPHIL CT 24.6 K/uL; LYMPHOCYTE COUNT 0.4 K/uL (1.0-2.8); MCH 27.8 PG (29.0-34.0); MCV 86.8 FL (83-99); MONOCYTE (%) 1.8 % (3-12); MONOCYTE COUNT 0.5 K/uL (0-0.8); NEUTROPHIL (%) 94.8 % (45-76); NEUTROPHIL COUNT 24.6 K/uL (1.8-6.4); PLATELET COUNT 318 K/uL (156-360); RBC DIS.WIDTH-CV 15.2 % (11.8-14.6); RBC DIS.WIDTH-SD 47.8 % (39-53); RED BLOOD COUNT 2.95 M/uL (3.80-5.20); WHITE BLOOD COUNT 25.9 K/uL (4.1-10.2)
[2017-03-04 05:06] LABS: CHLORIDE 99 mEq/L (99-109); SODIUM 141 mEq/L (136-147)
[2017-03-04 05:08] LABS: GLUCOSE 191 mg/dL (70-99)
[2017-03-04 05:09] LABS: ANION GAP 14 MEQ/L (2-14)
[2017-03-04 05:11] LABS: ALKALINE PHOSPHATASE 71 IU/L (3-129)
[2017-03-04 05:12] LABS: GFR ESTIMATE (CALCULATED) > 59 mL/min/
[2017-03-04 05:13] LABS: UREA NITROGEN (BUN) 18 mg/dL (9-23)
[2017-03-04 05:26] LABS: POTASSIUM 3.9 mEq/L (3.7-5.4); TOTAL BILIRUBIN 0.3 mg/dL (0.0-1.0)
[2017-03-04 06:43] VITALS: BP 99/66
[2017-03-04 08:13] LABS: POINT-OF-CARE METER ID UU14174216
[2017-03-04 11:25] LABS: POINT-OF-CARE METER ID UU14174216
[2017-03-04 11:53] VITALS: BP 96/49
[2017-03-04 15:20] VITALS: BP 126/58
[2017-03-04 16:17] LABS: POINT-OF-CARE METER ID UU14174216
[2017-03-04 19:44] VITALS: BP 137/63
[2017-03-04 21:33] LABS: POINT-OF-CARE METER ID UU13113698
[2017-03-04 23:44] VITALS: BP 128/58
[2017-03-05] VITALS (7 sets, daily range): BP systolic 118–152; BP diastolic 57–65
[2017-03-05 05:54] LABS: EOSINOPHIL (%) 0 % (0-5); IMMATURE GRANULOCYTE (%) 1.3 % (0.0-0.7); IMMATURE GRANULOCYTE COUNT 0.3 K/uL; INSTRUMENT ABS NEUTROPHIL CT 18.6 K/uL; LYMPHOCYTE COUNT 0.5 K/uL (1.0-2.8); MCH 28.6 PG (29.0-34.0); MCHC 32.4 G/DL (30.0-36.0); MCV 88.3 FL (83-99); MEAN PLAT.VOLUME 11.1 uM^3 (9.5-12.4); MONOCYTE (%) 2.1 % (3-12); MONOCYTE COUNT 0.4 K/uL (0-0.8); NEUTROPHIL (%) 93.8 % (45-76); NEUTROPHIL COUNT 18.6 K/uL (1.8-6.4); PLATELET COUNT 316 K/uL (156-360); RBC DIS.WIDTH-CV 15.5 % (11.8-14.6); RBC DIS.WIDTH-SD 49.1 % (39-53); RED BLOOD COUNT 2.83 M/uL (3.80-5.20); WHITE BLOOD COUNT 19.8 K/uL (4.1-10.2)
[2017-03-05 06:24] LABS: ALKALINE PHOSPHATASE 66 IU/L (3-129); ANION GAP 9 MEQ/L (2-14); CHLORIDE 99 MEQ/L (99-109); GFR ESTIMATE (CALCULATED) > 59 mL/min/; GLUCOSE 197 mg/dL (70-99); POTASSIUM 3.7 MEQ/L (3.7-5.4); SAMPLE HEMOLYSIS CHECK 0; SAMPLE ICTERIC CHECK 0; SAMPLE LIPEMIA CHECK 0; SODIUM 140 MEQ/L (136-147); UREA NITROGEN (BUN) 21 mg/dL (9-23)
[2017-03-05 06:25] LABS: TOTAL BILIRUBIN 0.3 MG/DL (0.0-1.0)
[2017-03-05 11:01] LABS: POINT-OF-CARE METER ID UU13113698
[2017-03-05 16:24] LABS: POINT-OF-CARE METER ID UU13113698
[2017-03-05 20:48] LABS: POINT-OF-CARE METER ID UU14174216
[2017-03-06 05:47] LABS: EOSINOPHIL (%) 0.1 % (0-5); HEMATOCRIT 26.5 % (36.0-46.0); IMMATURE GRANULOCYTE (%) 0.7 % (0.0-0.7); IMMATURE GRANULOCYTE COUNT 0.1 K/uL; INSTRUMENT ABS NEUTROPHIL CT 11.5 K/uL; LYMPHOCYTE COUNT 1.3 K/uL (1.0-2.8); MCH 28.7 PG (29.0-34.0); MCHC 32.1 G/DL (30.0-36.0); MCV 89.5 FL (83-99); MONOCYTE (%) 6.3 % (3-12); MONOCYTE COUNT 0.9 K/uL (0-0.8); NEUTROPHIL (%) 83.4 % (45-76); NEUTROPHIL COUNT 11.5 K/uL (1.8-6.4); PLATELET COUNT 340 K/uL (156-360); RBC DIS.WIDTH-CV 15.7 % (11.8-14.6); RBC DIS.WIDTH-SD 50.3 % (39-53); RED BLOOD COUNT 2.96 M/uL (3.80-5.20); WHITE BLOOD COUNT 13.8 K/uL (4.1-10.2)
[2017-03-06 06:06] VITALS: BP 125/59
[2017-03-06 06:17] LABS: ANION GAP 9 MEQ/L (2-14); CHLORIDE 96 MEQ/L (99-109); GFR ESTIMATE (CALCULATED) > 59 mL/min/; POTASSIUM 3.8 MEQ/L (3.7-5.4); SAMPLE HEMOLYSIS CHECK 0; SAMPLE ICTERIC CHECK 0; SAMPLE LIPEMIA CHECK 0; SODIUM 143 MEQ/L (136-147); UREA NITROGEN (BUN) 20 mg/dL (9-23)
[2017-03-06 06:19] LABS: GLUCOSE 96 mg/dL (70-99)
[2017-03-06 07:44] VITALS: BP 127/63
[2017-03-06 07:52] LABS: POINT-OF-CARE METER ID UU14314088
[2017-03-06 11:06] VITALS: BP 114/57
[2017-03-06 12:10] LABS: POINT-OF-CARE METER ID UU13113698
[2017-03-06 13:48] VITALS: BP 122/60
[2017-03-06 17:01] LABS: POINT-OF-CARE METER ID UU14188577
[2017-03-06 19:48] VITALS: BP 128/60
[2017-03-06 22:04] LABS: POINT-OF-CARE METER ID UU14117124
[2017-03-06 23:45] VITALS: BP 155/70
[2017-03-07 03:46] VITALS: BP 119/57
[2017-03-07 06:55] LABS: EOSINOPHIL (%) 0.6 % (0-5); EOSINOPHIL COUNT 0.1 K/uL (0-0.3); IMMATURE GRANULOCYTE (%) 0.4 % (0.0-0.7); INSTRUMENT ABS NEUTROPHIL CT 8.5 K/uL; MCH 28.1 PG (29.0-34.0); MCHC 31.8 G/DL (30.0-36.0); MCV 88.3 FL (83-99); MEAN PLAT.VOLUME 10.5 uM^3 (9.5-12.4); MONOCYTE (%) 6.6 % (3-12); MONOCYTE COUNT 0.8 K/uL (0-0.8); NEUTROPHIL (%) 74.4 % (45-76); NEUTROPHIL COUNT 8.5 K/uL (1.8-6.4); PLATELET COUNT 378 K/uL (156-360); RBC DIS.WIDTH-CV 15.5 % (11.8-14.6); RBC DIS.WIDTH-SD 49.3 % (39-53); RED BLOOD COUNT 3.17 M/uL (3.80-5.20); WHITE BLOOD COUNT 11.4 K/uL (4.1-10.2)
[2017-03-07 07:21] LABS: ALKALINE PHOSPHATASE 61 IU/L (3-129); ANION GAP ND MEQ/L (2-14); CARBON DIOXIDE (BICARBONATE) > 40.0 MEQ/L (20-31); CHLORIDE 95 MEQ/L (99-109); GFR ESTIMATE (CALCULATED) > 59 mL/min/; GLUCOSE 76 mg/dL (70-99); POTASSIUM 4.3 MEQ/L (3.7-5.4); SAMPLE HEMOLYSIS CHECK 0; SAMPLE ICTERIC CHECK 0; SAMPLE LIPEMIA CHECK 0; SODIUM 143 MEQ/L (136-147); UREA NITROGEN (BUN) 16 mg/dL (9-23)
[2017-03-07 07:22] LABS: TOTAL BILIRUBIN 0.4 MG/DL (0.0-1.0)
[2017-03-07 07:25] VITALS: BP 144/67
[2017-03-07 11:17] VITALS: BP 134/60
[2017-03-07 15:51] VITALS: BP 129/58
[2017-03-07 19:43] VITALS: BP 114/56
[2017-03-08 00:10] VITALS: BP 135/63
[2017-03-08 00:27] LABS: POINT-OF-CARE METER ID UU14208753
[2017-03-08 03:37] VITALS: BP 122/56
[2017-03-08 06:17] LABS: POINT-OF-CARE METER ID UU14117124
[2017-03-08 06:51] LABS: EOSINOPHIL (%) 0.6 % (0-5); EOSINOPHIL COUNT 0.1 K/uL (0-0.3); HEMATOCRIT 28.8 % (36.0-46.0); IMMATURE GRANULOCYTE (%) 0.5 % (0.0-0.7); IMMATURE GRANULOCYTE COUNT 0.1 K/uL; INSTRUMENT ABS NEUTROPHIL CT 10.2 K/uL; LYMPHOCYTE COUNT 2.4 K/uL (1.0-2.8); MCH 27.4 PG (29.0-34.0); MCHC 31.3 G/DL (30.0-36.0); MCV 87.5 FL (83-99); MEAN PLAT.VOLUME 10.4 uM^3 (9.5-12.4); MONOCYTE COUNT 0.8 K/uL (0-0.8); NEUTROPHIL (%) 74.9 % (45-76); NEUTROPHIL COUNT 10.2 K/uL (1.8-6.4); PLATELET COUNT 408 K/uL (156-360); RBC DIS.WIDTH-CV 15.5 % (11.8-14.6); RBC DIS.WIDTH-SD 49.1 % (39-53); RED BLOOD COUNT 3.29 M/uL (3.80-5.20); WHITE BLOOD COUNT 13.6 K/uL (4.1-10.2)
[2017-03-08 07:17] LABS: ANION GAP 8 MEQ/L (2-14); CHLORIDE 96 MEQ/L (99-109); GFR ESTIMATE (CALCULATED) > 59 mL/min/; GLUCOSE 82 mg/dL (70-99); POTASSIUM 3.6 MEQ/L (3.7-5.4); SAMPLE HEMOLYSIS CHECK 0; SAMPLE ICTERIC CHECK 0; SAMPLE LIPEMIA CHECK 0; SODIUM 143 MEQ/L (136-147); UREA NITROGEN (BUN) 17 mg/dL (9-23)
[2017-03-08 07:39] VITALS: BP 153/69
[2017-03-08 09:39] LABS: Estimated Average Glucose 128 mg/dL (70-123)
[2017-03-08 09:51] LABS: HEMOGLOBIN A1c (GLYCOHEMOGLOB) 6.1 % HGB (Below 5.7)
[2017-03-08 16:04] VITALS: BP 118/56
[2017-03-08 16:33] LABS: POINT-OF-CARE METER ID UU14117124
[2017-03-08 20:33] VITALS: BP 127/57
[2017-03-09] VITALS (7 sets, daily range): BP systolic 114–154; BP diastolic 54–70
[2017-03-09 06:10] LABS: HEMATOCRIT 29.8 % (36.0-46.0); MCH 26.9 PG (29.0-34.0); MCHC 30.5 G/DL (30.0-36.0); MCV 88.2 FL (83-99); MEAN PLAT.VOLUME 10.1 uM^3 (9.5-12.4); PLATELET COUNT 461 K/uL (156-360); RBC DIS.WIDTH-CV 15.8 % (11.8-14.6); RBC DIS.WIDTH-SD 50.5 % (39-53); RED BLOOD COUNT 3.38 M/uL (3.80-5.20); WHITE BLOOD COUNT 12.7 K/uL (4.1-10.2)
[2017-03-09 06:37] LABS: POINT-OF-CARE METER ID UU14117124
[2017-03-09 06:44] LABS: ANION GAP 5 MEQ/L (2-14); CHLORIDE 96 MEQ/L (99-109); GFR ESTIMATE (CALCULATED) > 59 mL/min/; GLUCOSE 163 mg/dL (70-99); POTASSIUM 3.8 MEQ/L (3.7-5.4); SAMPLE HEMOLYSIS CHECK 0; SAMPLE ICTERIC CHECK 0; SAMPLE LIPEMIA CHECK 0; SODIUM 141 MEQ/L (136-147); UREA NITROGEN (BUN) 15 mg/dL (9-23)
[2017-03-09 11:48] LABS: POINT-OF-CARE METER ID UU14117124
[2017-03-09 17:05] LABS: POINT-OF-CARE METER ID UU14117124
[2017-03-09 21:50] LABS: POINT-OF-CARE METER ID UU14117124
[2017-03-10 04:13] VITALS: BP 137/65
[2017-03-10 07:21] LABS: POINT-OF-CARE METER ID UU14188577
[2017-03-10 08:37] VITALS: BP 117/54
[2017-03-10 09:43] LABS: HEMATOCRIT 27.8 % (36.0-46.0); MCH 28.2 PG (29.0-34.0); MCHC 31.7 G/DL (30.0-36.0); MCV 89.1 FL (83-99); MEAN PLAT.VOLUME 10.2 uM^3 (9.5-12.4); PLATELET COUNT 463 K/uL (156-360); RBC DIS.WIDTH-CV 15.9 % (11.8-14.6); RBC DIS.WIDTH-SD 51.8 % (39-53); RED BLOOD COUNT 3.12 M/uL (3.80-5.20); WHITE BLOOD COUNT 11.7 K/uL (4.1-10.2)
[2017-03-10 09:54] LABS: ANION GAP 8 MEQ/L (2-14); CHLORIDE 100 MEQ/L (99-109); SAMPLE HEMOLYSIS CHECK 0; SAMPLE ICTERIC CHECK 0; SAMPLE LIPEMIA CHECK 0; SODIUM 142 MEQ/L (136-147)
[2017-03-10 10:00] LABS: GFR ESTIMATE (CALCULATED) > 59 mL/min/; GLUCOSE 235 mg/dL (70-99); UREA NITROGEN (BUN) 12 mg/dL (9-23)
[2017-03-10 11:32] VITALS: BP 127/57
[2017-03-10] MEDS ORDERED: Ocean Nasal 0.65% BOTH NARES (11:42)
[2017-03-10] MEDS ORDERED: PREDNISONE20 MG PO (11:42)
[2017-03-10] MEDS ORDERED: MYCOSTATIN 100,60 ML PO (11:42)
[2017-03-10] MEDS ORDERED: PANTOPRAZOLE SO40 MG PO (11:42)
[2017-03-10] MEDS ORDERED: FOLIC ACID1 MG PO (11:42)
[2017-03-10] MEDS ORDERED: SPIRIVA RESPIMAT4 GM IH (11:42)
[2017-03-10] MEDS ORDERED: Thiamine,Vitamin B1 PO (11:42)
[2017-03-10 11:55] LABS: POINT-OF-CARE METER ID UU14188577
[2017-03-10] MEDS ORDERED: OXYGEN MC (11:58)
[2017-03-10 16:04] VITALS: BP 147/67
== END 2017-03-10 17:06 | disposition home or self-care (01) | DRG 811 ==
LOC: EME 13:56 → EDOF 18:31 → 4EAST 18:31 → ENRESERV 18:39 → 4EAST 20:18 → ENRESERV 03-01 17:41 → CANRESERV 03-01 18:25 → 4EAST 03-02 09:40 → ENRESERV 03-06 10:25 → 3EAST 03-06 13:35
PROVIDERS: Emergency Medicine; Hospitalist; Internal Medicine; Internal Medicine Gastroenterology; Physician Assistant
PROC: 0DB68ZX Excision of Stomach, Via Natural or Artificial Opening Endoscopic, Diagnostic (ICD-10-PCS; principal; 2017-02-26)
PROC: 30233N1 Transfusion of Nonautologous Red Blood Cells into Peripheral Vein, Percutaneous Approach (ICD-10-PCS; principal; 2017-02-26)
PROC: 0DBK8ZX Excision of Ascending Colon, Via Natural or Artificial Opening Endoscopic, Diagnostic (ICD-10-PCS; 2017-02-28)
DX: D62 Acute posthemorrhagic anemia (principal); I50.33 Acute on chronic diastolic (congestive) heart failure; J96.01 Acute respiratory failure with hypoxia; J44.1 Chronic obstructive pulmonary disease with (acute) exacerbation; J18.9 Pneumonia, unspecified organism; J44.0 Chronic obstructive pulmonary disease with (acute) lower respiratory infection; E87.4 Mixed disorder of acid-base balance; I24.8 Other forms of acute ischemic heart disease; B37.0 Candidal stomatitis; I11.0 Hypertensive heart disease with heart failure; E86.1 Hypovolemia; I65.23 Occlusion and stenosis of bilateral carotid arteries; E87.6 Hypokalemia; E11.9 Type 2 diabetes mellitus without complications; K29.80 Duodenitis without bleeding; F10.10 Alcohol abuse, uncomplicated; F17.210 Nicotine dependence, cigarettes, uncomplicated; E03.9 Hypothyroidism, unspecified; I73.9 Peripheral vascular disease, unspecified; K29.70 Gastritis, unspecified, without bleeding; K63.5 Polyp of colon; K55.20 Angiodysplasia of colon without hemorrhage; I35.0 Nonrheumatic aortic (valve) stenosis; I25.10 Atherosclerotic heart disease of native coronary artery without angina pectoris; I71.4 Abdominal aortic aneurysm, without rupture; K64.8 Other hemorrhoids; I48.0 Paroxysmal atrial fibrillation; I70.0 Atherosclerosis of aorta; D12.2 Benign neoplasm of ascending colon; K57.90 Diverticulosis of intestine, part unspecified, without perforation or abscess without bleeding; T36.8X5A Adverse effect of other systemic antibiotics, initial encounter; T50.2X5A Adverse effect of carbonic-anhydrase inhibitors, benzothiadiazides and other diuretics, initial encounter; E78.5 Hyperlipidemia, unspecified; I95.9 Hypotension, unspecified; I27.20 Pulmonary hypertension, unspecified; Z86.711 Personal history of pulmonary embolism; Z88.4 Allergy status to anesthetic agent; Z95.1 Presence of aortocoronary bypass graft; Z86.718 Personal history of other venous thrombosis and embolism; Z79.4 Long term (current) use of insulin; Z79.01 Long term (current) use of anticoagulants; Z79.82 Long term (current) use of aspirin; Z87.01 Personal history of pneumonia (recurrent); Z88.6 Allergy status to analgesic agent
CPT/HCPCS: 36600; 71010; 71020; 71275; 74177; 80048; 80053; 80069; 80076; 81003; 82140; 82803; 82948; 83036; 83605; 83735; 83880; 84484; 85014; 85018; 85025; 85027; 85379; 85610; 85730; 86850; 86900; 86901; 86920; 87040; 87070; 87106; 87205; 87449; 88305; 88342 TC; 90686; 93005; 93306; 94010; 94640; 94640 76; 94668; 94760; 94799; 99202; 99281; 99285; J0456; J0696; J1815; J1940; J2270; J2354; J2920; J3411; J7030; J7040; J7050; J7512; P9016

== ENCOUNTER → 2017-11-18 | Outpatient (CLI) | payer OTHER ==
[~2017-11-18] MED LIST changes: +ASPIRIN81 M2 PO; +FOLIC ACID1 MG PO; +LEVO-T125 MCG PO; +LEVOTHYROXINE112 MCG PO; +LIPITOR20 MG PO; +LO-DOSE ASPIRIN81 M2 PO; +MYCOSTATIN 100,60 ML PO; +OXYGEN MC; +Ocean Nasal 0.65% BOTH NARES; +PANTOPRAZOLE SO40 MG PO; +PREDNISONE20 MG PO; +SPIRIVA RESPIMAT4 GM IH; +Thiamine,Vitamin B1 PO
[2017-11-18 10:31] LABS: HEMOGLOBIN 10.3 G/DL (11.9-15.5); MCH 29.3 PG (29.0-34.0); MCHC 32.2 G/DL (30.0-36.0); MCV 90.9 FL (83-99); PLATELET COUNT 301 K/uL (156-360); RBC DIS.WIDTH-CV 14.8 % (11.8-14.6); RBC DIS.WIDTH-SD 49.1 % (39-53); RED BLOOD COUNT 3.52 M/uL (3.80-5.20); WHITE BLOOD COUNT 8.9 K/uL (4.1-10.2)
[2017-11-18 10:44] LABS: PTT 28.6 SEC (25-37)
== END | disposition home or self-care (01) ==
LOC: EDSTATUS 11-02 08:00 → OPR 11-02 08:00
PROVIDERS: Internal Medicine Pulmonary Disease
PROC: BB241ZZ Computerized Tomography (CT Scan) of Bilateral Lungs using Low Osmolar Contrast (ICD-10-PCS; principal; 2017-11-18)
PROC: 0BBG3ZX Excision of Left Upper Lung Lobe, Percutaneous Approach, Diagnostic (ICD-10-PCS; principal; 2017-11-18)
DX: C34.12 Malignant neoplasm of upper lobe, left bronchus or lung (principal); J44.9 Chronic obstructive pulmonary disease, unspecified; I25.10 Atherosclerotic heart disease of native coronary artery without angina pectoris; I48.91 Unspecified atrial fibrillation; I27.20 Pulmonary hypertension, unspecified; Z79.01 Long term (current) use of anticoagulants; Z95.1 Presence of aortocoronary bypass graft; Z86.718 Personal history of other venous thrombosis and embolism; Z86.711 Personal history of pulmonary embolism; F17.200 Nicotine dependence, unspecified, uncomplicated
CPT/HCPCS: 71045; 77012; 85027; 85610; 85730; 87070; 87075; 87116; 87205; 87206; 88305; 88341 TC; 88342 TC; J3010

== ENCOUNTER 2017-12-22 06:34 | Day surgery (SDC) | payer OTHER ==
[~2017-12-22] VITALS: Ht 167.6 cm; Wt 58.9 kg
[~2017-12-22 06:34] MED LIST changes: +ASPIR 8181 M1 PO; +CYANOCOBAL1000 MCG/2 IM; +LASIX40 MG PO; +VENOFER100 MG/5 M IV
[2017-12-22 07:09] VITALS: BP 174/71
[2017-12-22 07:20] LABS: PTT 31.5 SEC (25-37)
[2017-12-22 07:40] LABS: ALBUMIN 4.1 G/DL (3.2-4.8); CHLORIDE 98 MEQ/L (99-109); POTASSIUM 3.7 MEQ/L (3.7-5.4); SODIUM 140 MEQ/L (136-147); TOTAL BILIRUBIN 0.4 MG/DL (0.0-1.0)
[2017-12-22 07:45] LABS: ALKALINE PHOSPHATASE 100 IU/L (3-129); ALT (GPT) 6 IU/L (3-49); AST (GOT) 11 IU/L (2-34); CREATININE 0.4 MG/DL (0.6-1.3); GFR ESTIMATE (CALCULATED) > 59 mL/min/; GLUCOSE 130 mg/dL (70-99); UREA NITROGEN (BUN) 10 mg/dL (9-23)
[2017-12-22 10:50] VITALS: BP 181/79
[2017-12-22 11:37] VITALS: BP 196/77
== END 2017-12-22 11:39 | disposition home or self-care (01) ==
LOC: SDC 06:34
PROVIDERS: Thoracic Surgery (Cardiothoracic Vascular Surgery)
PROC: 07B74ZX Excision of Thorax Lymphatic, Percutaneous Endoscopic Approach, Diagnostic (ICD-10-PCS; principal; 2017-12-22)
DX: C34.12 Malignant neoplasm of upper lobe, left bronchus or lung (principal); J44.9 Chronic obstructive pulmonary disease, unspecified; I27.20 Pulmonary hypertension, unspecified; E11.9 Type 2 diabetes mellitus without complications; I25.10 Atherosclerotic heart disease of native coronary artery without angina pectoris; I10 Essential (primary) hypertension; Z95.1 Presence of aortocoronary bypass graft; E03.9 Hypothyroidism, unspecified; I83.90 Asymptomatic varicose veins of unspecified lower extremity; Z86.711 Personal history of pulmonary embolism; Z86.718 Personal history of other venous thrombosis and embolism; Z87.01 Personal history of pneumonia (recurrent); F17.210 Nicotine dependence, cigarettes, uncomplicated; I48.91 Unspecified atrial fibrillation; Z90.49 Acquired absence of other specified parts of digestive tract; Z90.710 Acquired absence of both cervix and uterus; Z82.49 Family history of ischemic heart disease and other diseases of the circulatory system; Z80.3 Family history of malignant neoplasm of breast; Z83.3 Family history of diabetes mellitus; Z88.5 Allergy status to narcotic agent; Z79.84 Long term (current) use of oral hypoglycemic drugs; Z79.01 Long term (current) use of anticoagulants
CPT/HCPCS: 80048; 80053; 82948; 85610; 85730; 86850; 86900; 86901; 86920; 88305; J0330; J0690; J1100; J2405; J3010

== ENCOUNTER 2018-01-11 18:56 | Inpatient (IN) | payer OTHER ==
[~2018-01-11] VITALS: Ht 167.6 cm; Wt 62.3 kg
[~2018-01-11 18:56] MED LIST changes: +LANOXIN125 MCG PO
[2018-01-12] VITALS (17 sets, daily range): BP systolic 129–165; BP diastolic 58–79
[2018-01-12 07:14] LABS: INTER. NORMALIZED RATIO 0.9
[2018-01-12 07:17] LABS: PTT 28.8 SEC (25-37)
[2018-01-13] VITALS (16 sets, daily range): BP systolic 130–166; BP diastolic 55–75
[2018-01-13 06:20] LABS: HEMATOCRIT 31.1 % (36.0-46.0); MCH 29.7 PG (29.0-34.0); MCHC 31.2 G/DL (30.0-36.0); MCV 95.1 FL (83-99); RBC DIS.WIDTH-CV 17.8 % (11.8-14.6); RBC DIS.WIDTH-SD 62.4 % (39-53); WHITE BLOOD COUNT 9.9 K/uL (4.1-10.2)
[2018-01-13 06:21] LABS: HEMOGLOBIN 9.7 G/DL (11.9-15.5); PLATELET COUNT 224 K/uL (156-360); RED BLOOD COUNT 3.27 M/uL (3.80-5.20)
[2018-01-13 07:00] LABS: CHLORIDE 103 MEQ/L (99-109); CREATININE 0.7 MG/DL (0.6-1.3); GFR ESTIMATE (CALCULATED) > 59 mL/min/; GLUCOSE 125 mg/dL (70-99); POTASSIUM 4.2 MEQ/L (3.7-5.4); SODIUM 138 MEQ/L (136-147); UREA NITROGEN (BUN) 10 mg/dL (9-23)
[2018-01-14 04:31] VITALS: BP 142/77
[2018-01-14 07:52] VITALS: BP 163/65
[2018-01-14 12:15] VITALS: BP 129/60
[2018-01-14 16:58] VITALS: BP 135/68
[2018-01-15 05:24] LABS: HEMATOCRIT 28.5 % (36.0-46.0); HEMOGLOBIN 9.1 G/DL (11.9-15.5); MCHC 31.9 G/DL (30.0-36.0); MCV 94.1 FL (83-99); PLATELET COUNT 219 K/uL (156-360); RBC DIS.WIDTH-CV 17.7 % (11.8-14.6); RBC DIS.WIDTH-SD 61.7 % (39-53); RED BLOOD COUNT 3.03 M/uL (3.80-5.20); WHITE BLOOD COUNT 7.3 K/uL (4.1-10.2)
[2018-01-15 05:46] LABS: CHLORIDE 100 MEQ/L (99-109); CREATININE 0.7 MG/DL (0.6-1.3); GFR ESTIMATE (CALCULATED) > 59 mL/min/; GLUCOSE 102 mg/dL (70-99); POTASSIUM 3.7 MEQ/L (3.7-5.4); SODIUM 138 MEQ/L (136-147); UREA NITROGEN (BUN) 8 mg/dL (9-23)
[2018-01-15 08:00] VITALS: BP 183/72
[2018-01-15 11:53] VITALS: BP 150/71
[2018-01-15 16:59] VITALS: BP 150/65
[2018-01-15 20:00] VITALS: BP 154/68
[2018-01-15 23:49] VITALS: BP 144/68
[2018-01-16 03:52] VITALS: BP 140/67
[2018-01-16 07:56] VITALS: BP 151/66
[2018-01-16 12:23] VITALS: BP 137/61
[2018-01-16 16:58] VITALS: BP 141/66
[2018-01-16 19:13] VITALS: BP 126/61
[2018-01-16 23:13] VITALS: BP 140/67
[2018-01-17 04:48] VITALS: BP 141/63
[2018-01-17 07:11] VITALS: BP 158/69
[2018-01-17 11:45] VITALS: BP 139/63
[2018-01-17 15:09] VITALS: BP 126/60
[2018-01-17 18:52] VITALS: BP 125/60; BP 141/64
[2018-01-18] VITALS (7 sets, daily range): BP systolic 115–163; BP diastolic 56–72
[2018-01-19 04:45] VITALS: BP 131/63
[2018-01-19 07:17] VITALS: BP 139/65
[2018-01-19 11:38] VITALS: BP 123/58
[2018-01-19 17:21] VITALS: BP 154/68
[2018-01-19 20:00] VITALS: BP 137/64
[2018-01-19 23:55] VITALS: BP 170/72
[2018-01-20] VITALS (7 sets, daily range): BP systolic 95–174; BP diastolic 46–74
[2018-01-21] VITALS (18 sets, daily range): BP systolic 103–149; BP diastolic 48–79
[2018-01-21 05:25] LABS: BASOPHIL (%) 0.2 % (0-1); EOSINOPHIL (%) 10.6 % (0-5); HEMATOCRIT 19.4 % (36.0-46.0); IMMATURE GRANULOCYTE (%) 0.5 % (0.0-0.7); LYMPHOCYTE (%) 22.1 % (15-42); LYMPHOCYTE COUNT 2.1 K/uL (1.0-2.8); MCH 29.9 PG (29.0-34.0); MCHC 30.9 G/DL (30.0-36.0); MCV 96.5 FL (83-99); MONOCYTE (%) 5.7 % (3-12); MONOCYTE COUNT 0.5 K/uL (0-0.8); NEUTROPHIL (%) 60.9 % (45-76); NEUTROPHIL COUNT 5.7 K/uL (1.8-6.4); RBC DIS.WIDTH-CV 17.2 % (11.8-14.6); RBC DIS.WIDTH-SD 60.6 % (39-53); RED BLOOD COUNT 2.01 M/uL (3.80-5.20); WHITE BLOOD COUNT 9.3 K/uL (4.1-10.2)
[2018-01-21 05:26] LABS: PLATELET COUNT 331 K/uL (156-360)
[2018-01-21 06:03] LABS: CHLORIDE 102 MEQ/L (99-109); CREATININE 0.9 MG/DL (0.6-1.3); GFR ESTIMATE (CALCULATED) > 59 mL/min/; GLUCOSE 64 mg/dL (70-99); SODIUM 139 MEQ/L (136-147)
[2018-01-21 06:06] LABS: POTASSIUM 4.6 MEQ/L (3.7-5.4); UREA NITROGEN (BUN) 48 mg/dL (9-23)
[2018-01-22 01:24] LABS: INTER. NORMALIZED RATIO 1.2
[2018-01-22 01:27] LABS: PTT 34.7 SEC (25-37)
[2018-01-22 01:36] LABS: BASOPHIL (%) 0.1 % (0-1); EOSINOPHIL (%) 3.1 % (0-5); EOSINOPHIL COUNT 0.3 K/uL (0-0.3); HEMATOCRIT 35.8 % (36.0-46.0); IMMATURE GRANULOCYTE (%) 0.7 % (0.0-0.7); LYMPHOCYTE (%) 18.4 % (15-42); LYMPHOCYTE COUNT 1.5 K/uL (1.0-2.8); MCH 28.9 PG (29.0-34.0); MONOCYTE (%) 3.7 % (3-12); MONOCYTE COUNT 0.3 K/uL (0-0.8); NEUTROPHIL COUNT 6.2 K/uL (1.8-6.4); PLATELET COUNT 345 K/uL (156-360); RBC DIS.WIDTH-CV 17.2 % (11.8-14.6); RBC DIS.WIDTH-SD 54.4 % (39-53); WHITE BLOOD COUNT 8.4 K/uL (4.1-10.2)
[2018-01-22 01:37] LABS: HEMOGLOBIN 11.8 G/DL (11.9-15.5); MCV 87.5 FL (83-99); RED BLOOD COUNT 4.09 M/uL (3.80-5.20)
[2018-01-22 04:00] VITALS: BP 102/54
[2018-01-22 05:59] LABS: BASOPHIL (%) 0.3 % (0-1); EOSINOPHIL (%) 4.9 % (0-5); EOSINOPHIL COUNT 0.6 K/uL (0-0.3); HEMATOCRIT 33.2 % (36.0-46.0); HEMOGLOBIN 10.9 G/DL (11.9-15.5); IMMATURE GRANULOCYTE (%) 0.5 % (0.0-0.7); LYMPHOCYTE (%) 11.1 % (15-42); LYMPHOCYTE COUNT 1.3 K/uL (1.0-2.8); MCH 28.9 PG (29.0-34.0); MCHC 32.8 G/DL (30.0-36.0); MCV 88.1 FL (83-99); MONOCYTE (%) 4.5 % (3-12); MONOCYTE COUNT 0.5 K/uL (0-0.8); NEUTROPHIL (%) 78.7 % (45-76); NEUTROPHIL COUNT 9.4 K/uL (1.8-6.4); PLATELET COUNT 336 K/uL (156-360); RBC DIS.WIDTH-CV 17.4 % (11.8-14.6); RED BLOOD COUNT 3.77 M/uL (3.80-5.20)
[2018-01-22 07:30] VITALS: BP 124/64
[2018-01-22 12:23] VITALS: BP 117/59
[2018-01-22 13:35] LABS: BASOPHIL (%) 0.2 % (0-1); EOSINOPHIL (%) 5.5 % (0-5); EOSINOPHIL COUNT 0.7 K/uL (0-0.3); HEMATOCRIT 32.4 % (36.0-46.0); HEMOGLOBIN 10.6 G/DL (11.9-15.5); IMMATURE GRANULOCYTE (%) 0.3 % (0.0-0.7); LYMPHOCYTE (%) 7.8 % (15-42); LYMPHOCYTE COUNT 0.9 K/uL (1.0-2.8); MCH 29.4 PG (29.0-34.0); MCHC 32.7 G/DL (30.0-36.0); MCV 89.8 FL (83-99); MONOCYTE (%) 3.1 % (3-12); MONOCYTE COUNT 0.4 K/uL (0-0.8); NEUTROPHIL (%) 83.1 % (45-76); NEUTROPHIL COUNT 9.7 K/uL (1.8-6.4); PLATELET COUNT 343 K/uL (156-360); RBC DIS.WIDTH-CV 17.2 % (11.8-14.6); RBC DIS.WIDTH-SD 55.9 % (39-53); RED BLOOD COUNT 3.61 M/uL (3.80-5.20); WHITE BLOOD COUNT 11.7 K/uL (4.1-10.2)
[2018-01-22 18:02] LABS: BASOPHIL (%) 0.2 % (0-1); EOSINOPHIL (%) 7.9 % (0-5); HEMATOCRIT 33.4 % (36.0-46.0); HEMOGLOBIN 10.8 G/DL (11.9-15.5); IMMATURE GRANULOCYTE (%) 0.6 % (0.0-0.7); LYMPHOCYTE (%) 14.7 % (15-42); LYMPHOCYTE COUNT 1.8 K/uL (1.0-2.8); MCH 28.8 PG (29.0-34.0); MCHC 32.3 G/DL (30.0-36.0); MCV 89.1 FL (83-99); MONOCYTE (%) 5.4 % (3-12); MONOCYTE COUNT 0.7 K/uL (0-0.8); NEUTROPHIL (%) 71.2 % (45-76); NEUTROPHIL COUNT 8.8 K/uL (1.8-6.4); PLATELET COUNT 344 K/uL (156-360); RBC DIS.WIDTH-CV 17.2 % (11.8-14.6); RBC DIS.WIDTH-SD 55.8 % (39-53); RED BLOOD COUNT 3.75 M/uL (3.80-5.20); WHITE BLOOD COUNT 12.3 K/uL (4.1-10.2)
[2018-01-22 19:25] VITALS: BP 107/51
[2018-01-22 23:40] VITALS: BP 130/56
[2018-01-23 03:30] VITALS: BP 101/54
[2018-01-23 05:41] LABS: BASOPHIL (%) 0.3 % (0-1); EOSINOPHIL (%) 10.2 % (0-5); EOSINOPHIL COUNT 1.2 K/uL (0-0.3); HEMATOCRIT 32.4 % (36.0-46.0); HEMOGLOBIN 10.3 G/DL (11.9-15.5); IMMATURE GRANULOCYTE (%) 0.5 % (0.0-0.7); LYMPHOCYTE (%) 12.3 % (15-42); LYMPHOCYTE COUNT 1.4 K/uL (1.0-2.8); MCH 28.6 PG (29.0-34.0); MCHC 31.8 G/DL (30.0-36.0); MONOCYTE (%) 5.8 % (3-12); MONOCYTE COUNT 0.7 K/uL (0-0.8); NEUTROPHIL (%) 70.9 % (45-76); NEUTROPHIL COUNT 8.2 K/uL (1.8-6.4); PLATELET COUNT 357 K/uL (156-360); RBC DIS.WIDTH-CV 16.7 % (11.8-14.6); RBC DIS.WIDTH-SD 54.4 % (39-53); WHITE BLOOD COUNT 11.5 K/uL (4.1-10.2)
[2018-01-23 08:13] VITALS: BP 128/79
[2018-01-23 11:17] VITALS: BP 105/53
[2018-01-23 17:58] VITALS: BP 97/52
[2018-01-23 19:32] VITALS: BP 118/57
[2018-01-23 23:28] VITALS: BP 124/65
[2018-01-24 03:10] VITALS: BP 118/58
[2018-01-24 05:42] LABS: BASOPHIL (%) 0.3 % (0-1); EOSINOPHIL (%) 12.7 % (0-5); EOSINOPHIL COUNT 1.3 K/uL (0-0.3); HEMATOCRIT 28.8 % (36.0-46.0); HEMOGLOBIN 9.3 G/DL (11.9-15.5); IMMATURE GRANULOCYTE (%) 0.3 % (0.0-0.7); LYMPHOCYTE (%) 10.6 % (15-42); LYMPHOCYTE COUNT 1.1 K/uL (1.0-2.8); MCH 29.3 PG (29.0-34.0); MCHC 32.3 G/DL (30.0-36.0); MCV 90.9 FL (83-99); MONOCYTE (%) 5.6 % (3-12); MONOCYTE COUNT 0.6 K/uL (0-0.8); NEUTROPHIL (%) 70.5 % (45-76); PLATELET COUNT 359 K/uL (156-360); RBC DIS.WIDTH-CV 16.2 % (11.8-14.6); RBC DIS.WIDTH-SD 52.9 % (39-53); RED BLOOD COUNT 3.17 M/uL (3.80-5.20); WHITE BLOOD COUNT 9.9 K/uL (4.1-10.2)
[2018-01-24 07:22] VITALS: BP 109/59
[2018-01-24 12:20] VITALS: BP 136/60
[2018-01-24 16:06] VITALS: BP 119/58
[2018-01-24 19:45] VITALS: BP 113/54
[2018-01-24 23:10] VITALS: BP 115/55
[2018-01-25 03:12] VITALS: BP 141/67
[2018-01-25 07:30] VITALS: BP 111/51
[2018-01-25 11:44] VITALS: BP 127/62
[2018-01-25 15:03] VITALS: BP 111/55
[2018-01-25] MEDS ORDERED: HYDROCODON-ACE1 EAC7 PO (19:05)
[2018-01-25] MEDS ORDERED: DOCUSATE SODIU100 MG PO (19:05)
[2018-01-25] MEDS ORDERED: MUCINEX600 MG PO (19:05)
[2018-01-25] MEDS ORDERED: HYDROCODON-ACE1 EAC9 PO (19:21)
[2018-01-25] MEDS ORDERED: Protonix PO (19:21)
[2018-01-25 19:29] VITALS: BP 139/64
== END 2018-01-25 20:26 | disposition home health service (06) | DRG 163 ==
LOC: ENRESERV 18:56 → 4EAST 01-12 06:39 → 2SOUTH 01-12 06:39 → 4WEST 01-12 06:39 → 2SOUTH 01-12 11:02 → ENRESERV 01-12 14:09 → 4WEST 01-12 16:19 → ENRESERV 01-13 16:34 → 4EAST 01-13 18:28
PROVIDERS: Specialist; Thoracic Surgery (Cardiothoracic Vascular Surgery)
PROC: 07T70ZZ Resection of Thorax Lymphatic, Open Approach (ICD-10-PCS; principal; 2018-01-12)
PROC: 0BTG0ZZ Resection of Left Upper Lung Lobe, Open Approach (ICD-10-PCS; principal; 2018-01-12)
PROC: 0BT Respiratory System, Resection (ICD-10-PCS; principal; 2018-01-12)
PROC: 30233N1 Transfusion of Nonautologous Red Blood Cells into Peripheral Vein, Percutaneous Approach (ICD-10-PCS; 2018-01-21)
PROC: 0DJ08ZZ Inspection of Upper Intestinal Tract, Via Natural or Artificial Opening Endoscopic (ICD-10-PCS; 2018-01-23)
PROC: 0W3P8ZZ Control Bleeding in Gastrointestinal Tract, Via Natural or Artificial Opening Endoscopic (ICD-10-PCS; 2018-01-23)
DX: C34.12 Malignant neoplasm of upper lobe, left bronchus or lung (principal); J95.812 Postprocedural air leak; Y83.8 Other surgical procedures as the cause of abnormal reaction of the patient, or of later complication, without mention of misadventure at the time of the procedure; K31.811 Angiodysplasia of stomach and duodenum with bleeding; D50.0 Iron deficiency anemia secondary to blood loss (chronic); J44.9 Chronic obstructive pulmonary disease, unspecified; I27.20 Pulmonary hypertension, unspecified; E11.9 Type 2 diabetes mellitus without complications; I11.0 Hypertensive heart disease with heart failure; I50.9 Heart failure, unspecified; I48.0 Paroxysmal atrial fibrillation; D51.9 Vitamin B12 deficiency anemia, unspecified; I25.10 Atherosclerotic heart disease of native coronary artery without angina pectoris; E03.9 Hypothyroidism, unspecified; K29.70 Gastritis, unspecified, without bleeding; I08.3 Combined rheumatic disorders of mitral, aortic and tricuspid valves; E78.5 Hyperlipidemia, unspecified; I65.29 Occlusion and stenosis of unspecified carotid artery; F17.210 Nicotine dependence, cigarettes, uncomplicated; J98.11 Atelectasis; I25.2 Old myocardial infarction; Z86.010 Personal history of colon polyps; Z86.711 Personal history of pulmonary embolism; Z86.718 Personal history of other venous thrombosis and embolism; Z79.01 Long term (current) use of anticoagulants; Z87.01 Personal history of pneumonia (recurrent); Z87.11 Personal history of peptic ulcer disease; Z95.1 Presence of aortocoronary bypass graft; Z90.710 Acquired absence of both cervix and uterus; Z90.49 Acquired absence of other specified parts of digestive tract
CPT/HCPCS: 71045; 71046; 80048; 82948; 85025; 85025 91; 85027; 85610; 85730; 86850; 86900; 86901; 86920; 87641; 88300; 88305; 88309; 94002; 94640; 94760; 94799; 97530 GO; 97530 GP; C9113; J0330; J0690; J1644; J1885; J1940; J2250; J2405; J2710; J2795; J3010; J3420; J7030; J7040; J7050; J7120; J7643; P9016